=== PATIENT | female | born 1995 | race Hispanic/Latino ===

== ENCOUNTER 2023-01-28 11:39 | Day surgery (SDC) | payer OTHER, SELFPAY ==
[2023-01-28 11:53] VITALS: BMI 28.1
[2023-01-28] MEDS: LACTATED RINGERS 1,000 ML 120 ML IV (12:16)
--- NOTE | 2023-01-28 12:31 | PM.PREOP ---
Pre-operative Note Interval Note History & Physical reviewed/Exam performed by Physician: Yes Changes to H&P: No
--- NOTE | 2023-01-28 12:54 | P.OP.COLON_ITS ---
Operative Date/Time/Diagnoses Date of procedure: 01/28/23 Time of procedure: 12:54 Pre-op diagnosis: Rectal bleeding Post-op diagnosis: other (Internal hemorrhoids) Procedure & Clinicians Study performed: Colonoscopy diagnostic and hemorrhoidal banding Same procedure as scheduled: Yes Indications: Rectal bleeding Surgeon: Arnulfo Bailey Procedure Notes Procedure in detail: The history and physical was performed/updated and the patient is ASA class is 1. The procedure was discussed in detail with the patient. Potential risks complications including infection, bleeding, missed diagnosis, perforation, need for surgery, and were explained. Their questions were answered and informed consent was obtained. Patient was brought to the procedure room and placed standard monitoring equipment. The patient's vital signs were monitored continuously throughout the entire procedure. Prior to starting time-out was performed. The patient was placed in the left lateral recumbent position. Procedural sedation was administered by anesthesia. Examination began with a thorough inspection of the perianal area there was no evidence of fissures, fistulae, external hemorrhoids or cutaneous malignancy. The colonoscopy scope was then placed into the anal canal and was advanced to the cecum, which was identified by the ileocecal valve, the appendiceal orifice and the confluence of the taenia. The scope was then slowly withdrawn examining colon thoroughly in all directions, irrigating it of any residual stool. The scope was retroflexed within the rectum The patient tolerated the procedure well. They will be discharged once criteria are met. The prep was of good/excellent quality. The withdrawl time was 7 minutes. FINDINGS * Normal healthy colon without masses polyps or inflammation. * Grade 2 internal hemorrhoids * Following completion of the colonoscopy we proceeded with hemorrhoidal banding. The anoscope was placed and there were grade 2 internal hemorrhoids in the right posterior and left lateral positions. Each column was grasped with a suction ligator and then doubly ligated at its base. She tolerated this procedure well and was transferred to recovery in stable condition. Specimen(s): none sent Impression: Internal hemorrhoids Post-procedure Recommendations: High fiber diet Plan for aftercare: Follow up with the general surgery clinic as needed Disposition: same day surgery
[2023-01-28 12:55] VITALS: BP 91/52; PULSE 98; RESP 18; TEMP 36.7; O2SAT 96
[2023-01-28 13:00] VITALS: BP 94/57; PULSE 86; RESP 12; O2SAT 100
[2023-01-28 13:05] VITALS: BP 107/70; PULSE 83; RESP 15; O2SAT 100
[2023-01-28 13:20] VITALS: BP 107/71; PULSE 85; RESP 13; TEMP 36.2; O2SAT 100
[2023-01-28] MEDS: ONDANSETRON 4 MG/2 ML INJ IV (13:24)
== END 2023-01-28 13:25 | disposition home or self-care (01) ==
PROVIDERS: PCP Student in an Organized Health Care Education/Training Program; Referring Provider Surgery; Visit Provider Surgery
PROC: 0DJD8ZZ Inspection of Lower Intestinal Tract, Via Natural or Artificial Opening Endoscopic (ICD-10-PCS; CPT 45378; principal; 2023-01-28 12:30)
DX: K62.5 Hemorrhage of anus and rectum (principal); K64.1 Second degree hemorrhoids; R10.32 Left lower quadrant pain
CPT/HCPCS: 46221; 45378; J2250; J2405; J2704